=== PATIENT | female | born 1990 | race Caucasian/White ===

== ENCOUNTER 2016-08-02 18:14 | Emergency (ER) | payer OTHER ==
[~2016-08-02] VITALS: Ht 160 cm; Wt 75.0 kg
[~2016-08-02 18:14] MED LIST: ACET325T51 PO; AMPH20TA5 PO; DEXT20TA8 PO; INDO50CA PO; KLO5T PO; NITR100 PO; PNV91TAB3 PO; PROP20TA5 PO
[2016-08-02 18:24] VITALS: BP 114/79; PULSE 101; RESP 18; O2SAT 100
--- NOTE | 2016-08-02 19:52 | ED.REPORT ---
HPI-Psychiatric Illness Date of Service Aug 02, 2016 ED Provider: Johan Anne MD 25 year old female with a history of anxiety presents to the ER accompanied by her boyfriend complaining of two weeks of insomnia. She states that she has gotten about 2 hours of sleep daily for the past two weeks. Typically she does not get much sleep due to her busy family and work life. Patient's mother insisted that the patient come to the ER out of concern for suicidal ideation after the patient took her prescribed dose of Clonazepam yesterday and laid down for a nap. She was seen by her PCP, Ena Campos, today prior to her visit to the ER. Currently she adamantly denies suicidal ideation, and any history of suicidal ideation/attempts and self-harming behavior. Boyfriend denies any concern for the patient's mental health. Patient provides a reasonable story. However, her story does not match the affidavit that indicates mood swings and yelling episodes over recent weeks. Please see affidavits from mother and counselor. Nursing Notes Stated Complaint: MENTAL HEALTH EVALUATION Chief Complaint: Psychiatric Complaint Nursing Notes Reviewed: Yes (Ph[employer] not reconciled) Allergies: Coded Allergies: Cephalosporins (Verified Allergy, Severe, CEFZOL RASH, 08/02/16) Scheduled Amphet Asp/Amphet/D-Amphet (Adderall) 20 Mg Tablet 40 MG PO QAM Dextroamphetamine/Amphetamine (Amphetamine Mixed Salts) 20 Mg Tablet 30 MG PO noon Dextroamphetamine/Amphetamine (Amphetamine Mixed Salts) 20 Mg Tablet 20 MG PO 3 pm Indomethacin (Indomethacin) 50 Mg Capsule 50 MG PO TID Nitrofurantoin Monohyd/M-Cryst (MacroBid) 100 Mg Capsule 100 MG PO BID Pnv95/Ferrous Fumarate/FA ( Caplet) 28 Mg Iron-800 Mcg Tablet 1 EACH PO DAILY Scheduled PRN Acetaminophen (Acetaminophen) 325 Mg Tablet 1,000 MG PO Q4H PRN PRN For Pain Clonazepam (Clonazepam) 0.5 Mg Tablet 0.5 MG PO TID PRN PRN For Anxiety Propranolol HCl (Propranolol HCl) 20 Mg Tablet 20 MG PO TID PRN PRN anxiety General Time Seen by : 19:50 Chief Complaint Other (Insomnia) Hx Obtained From: Patient Arrived By: Walk-in Onset Occurred: More than a week ago... (2 weeks) Associated with: Reports: Anxiety, Denies: Depression Pertinent Negative: Pt denies other symptoms Related History: Reports: Anxiety, Decreased sleep, Denies: Prior suicide attempt(s) Risk-Psychiatric Illness Suicide Risk Stratification Suicide Risk Factors - Adult: No: Previous attempt RF Statements: Risk factors reviewed Past Medical History Past Medical History Miscarriage 01/14 Past Surgical History None reported Smoking History Former Smoker Social History Alcohol Use: Denies alcohol use Drug Use: Denies drug use Other Social History: Good social support Ambulatory Status Independent Review of Systems Psychiatric: Reports: Anxiety, Insomnia, Stress, Denies: Change mental status, Delusional, Depression, Hallucinations, auditory, Hallucinations, visual, Homicidal ideation, Hostile, Suicidal ideation Complete sys rev & neg: except as marked. Physical Exam Initial Vital Signs Vital Signs (First) Date Time Temp Pulse Resp B/P Pulse Ox O2 Delivery O2 Flow Rate FiO2 08/02/16 18:24 36.7 101 18 114/79 100 Room Air Initial VS: Reviewed, Vital signs abnormal (HR 101) Head / Eyes: Atraumatic, Normocephalic Neck: Supple, Non-tender, Full range of motion Respiratory: Breath sounds normal, Clear to auscultation, No respiratory distress Cardiovascular: Regular rate & rhythm, Heart sounds normal, Intact distal pulses Abdomen / GI: Soft, Non-tender, No guarding, No rebound, No distention Extremities: Vascular intact, Neuro intact, No swelling, No tenderness General/Constitutional: Awake, Alert, Well developed, Well nourished Neurologic: Oriented X3, Speech NL, No motor deficits, No sensory deficits, Memory NL Not drowsy. Not in clinical withdrawal. Not clinically intoxicated. Psychiatric: Affect NL, Mood NL, Not suicidal, Not homicidal, No hallucinations , Cognitive function NL, Judgment/insight NL, Thought content NL Skin: Warm, Dry, Intact Color / Condition: Positive: Rash present Rash / Lesion Notes: Eczema over wrists, bialterally. No signs of self-mutilation. Rash / Lesion Location: Positive: Wrist L, Wrist R Interpretation & Diagnostics Lab Results Interpretation Result Diagram: 08/02/16213508/02/162135 Test 08/02/16 19:56 08/02/16 21:36 Hold Urine Received (Received) White Blood Count 9.1th/mm3 (3.8-10.1) Red Blood Count 4.43mil/mm3 (3.90-5.20) Hemoglobin 10.6g/dL (12.0-15.6) Hematocrit 35.1% (35.0-46.0) Mean Corpuscular Volume 79.2fL (81-100) Mean Corpuscular Hemoglobin 23.9pg (27.0-35.0) Mean Corpuscular Hemoglobin Concent 30.2% (32.0-37.0) Red Cell Distribution Width 14.7% (12.3-15.4) Platelet Count 257bil/L (150-400) Neutrophils (%) (Auto) 52.9% (40-74) Lymphocytes (%) (Auto) 39.3% (14-46) Monocytes (%) (Auto) 6.1% (4-12) Eosinophils (%) (Auto) 1.2% (0-5) Basophils (%) (Auto) 0.4% (0-3) Sodium Level 141mEq/L (134-144) Potassium Level 4.1mEq/L (3.5-5.2) Chloride Level 105mEq/L (97-108) Carbon Dioxide Level 24mmol/L (18-29) Blood Urea Nitrogen 8mg/dL (6-20) Creatinine 0.78mg/dL (0.57-1.00) Estimat Glomerular Filtration Rate 128mL/min (>59) Glucose Level 100mg/dL (60-99) Calcium Level 8.7mg/dL (8.5-10.1) Total Bilirubin 0.2mg/dL (0.0-1.2) Aspartate Amino Transf (AST/SGOT) 16U/L (0-50) Alanine Aminotransferase (ALT/SGPT) 13U/L (0-32) Alkaline Phosphatase 58U/L (25-150) Total Protein 6.6g/dL (6.4-8.4) Albumin 4.1g/dL (3.4-5.0) Thyroid Stimulating Hormone (TSH) 2.360uIU/mL (0.450-4.500) Hold Larson Top Tube Received (Received) Salicylates Level 3.0ug/mL (30-250) Acetaminophen Level 15.0ug/mL Rx (10-25) Lab Results Interpretation: CBC & CMP normal U tox negative negative Alcohol negative Salicylate is negative Tylenol negative Re-Eval/Medical Decision Med Decision/Clinical Course This is a 25-year-old female presented initially voluntarily stating she was here for mental health evaluation. She initially tells me that she was sent here by her psychiatric provider for insomnia and for an evaluation. She is able to tell me that she does not think she needs to be her, that her mother alleges that she suicidal-but that she is not. The patient gives the story about having being tired that she has several kids, and that she does have clonazepam that she uses on a when necessary basis intermittently, and a yesterday her kids were at school, she was very tired, she was anxious and she took her prescribed dose of clonazepam and took a nap. She then states her mother thought that she was suicidal-she adamantly indicates she was at no point suicidal, denies being depressed, denying needing any help and does not think she need to be here but came here recommendation of her provider. Now turns out her provider sent in to affidavits indicating a concern for self- harm, one from the provider Ena Campos, and one from the mother. Both talk about angry outbursts and labile moods, and given vague description about concern for clonazepam, but are not specific about clear findings of self-harm. The patient is in his eyes are wanted to go home, he did not want to stay for any further evaluation-insisted that she did not need one. She did cooperate and provided a urine tox which was negative, and a breathalyzer is negative. However when I informed her that she needed and a mental health evaluation, she was upset and she wanted to leave and did not want to stay any longer in the department. I explained that her psychiatrist requested a DCR evaluation and that she had completed an affidavit requesting one. When I explained the patient kept trying to ask for close and wanted to leave the department, and I explained that given the affidavits that are present, that a mental health evaluation is required before she can leave, she merely escalated-she started screaming, yelling,. Security had to be present. She made multiple threats, ultimately when I explained the situation that she was going to receive a mental health evaluation, but she controlled the circumstances, as he escalated further she can require seclusion room, chemical sedation-ultimately calmed down. She cooperated in allowing blood work to be drawn, this was normal. The DCR came and saw the patient, and does not find that the patient meets criteria for involuntary treatment. The patient's demanding to go home, and is being discharged. Routine precautions and resources referrals are being provided.. Source of Hx: Old records Re-Evaluation/Progress #1: Time of Eval: 21:28 Re-Evaluation/Progress Note: Discussed plan to keep patient in the department to be seen by DCR. Patient became agitated upon receiving this news. Re-Evaluation/Progress #2: Time of Eval: 22:56 Re-Evaluation/Progress Note: Discussed patient case with DCR who is now present in the department. Counseled Regarding: Diagnosis, Lab results Discharge & Departure Impression: Primary Impression: Acute situational disturbance Discharge Condition All VS Reviewed: Yes Condition: Stable Referrals: Hemal Ventura MD (PCP) Karenibchristal Attestation Portions of this note were transcribed by Italo El. I, Dr. Anne, personally performed the history, physical exam and medical decision-making; I reviewed and confirmed the accuracy of the information in the transcribed note. Signed by: Raad Bowie, 08/02/2016 and *time*. copies to: Hemal Ventura MD, Matthew F MD Aug 02, 2016 19:52 ITALO LE Aug 02, 2016 20:12
[2016-08-02 21:44] LABS: BASOPHILS % (AUTO) 0.4 % (0-3); EOSINOPHILS % (AUTO) 1.2 % (0-5); MONOCYTES % (AUTO) 6.1 % (4-12); Mean Corpuscular Hemoglobin 23.9 pg (27.0-35.0); Mean Corpuscular Volume 79.2 fL (81-100); NEUTROPHILS % (AUTO) 52.9 % (40-74); Platelet Count 257 bil/L (150-400)
[2016-08-03 00:02] VITALS: BP 105/63; PULSE 82; RESP 16; O2SAT 99
== END 2016-08-03 00:03 | disposition home or self-care (01) ==
LOC: SED 18:14
DX: F43.0 Acute stress reaction (principal); G47.00 Insomnia, unspecified; F41.9 Anxiety disorder, unspecified; Z87.891 Personal history of nicotine dependence; Z88.1 Allergy status to other antibiotic agents
CPT/HCPCS: 36415; 80053; 81002; 81025; 82075; 84443; 85025; 99284; G0480